=== PATIENT | male | born 1955 | race Caucasian/White ===

== ENCOUNTER 2016-12-04 13:58 | Emergency (ER) | payer OTHER ==
--- NOTE | ~2016-12-04 | EKG ---
PATIENT: BIRDIE PERALES UNIT #: [id number] Ventricular Rate: 92 BPM Atrial Rate: 92 BPM P-R Interval: 188 ms QRS Duration: 94 ms Q-T Interval: 376 ms QTC Calculation(Bezet): 464 ms P [place]: 80 degrees Calculated R [place]: 40 degrees Calculated T [place]: 126 degrees Diagnosis Line: Normal sinus rhythm Diagnosis Line: Biatrial enlargement Diagnosis Line: Nonspecific ST and T wave abnormality Diagnosis Line: Abnormal ECG Diagnosis Line: When compared with ECG of 10-JAN-2016 14:52, Diagnosis Line: Premature ventricular complexes are no longer Diagnosis Line: Present Diagnosis Line: Left posterior fascicular block is no longer Diagnosis Line: Present Diagnosis Line: Nonspecific T wave abnormality now evident in Diagnosis Line: Lateral leads Diagnosis Line: Confirmed by OTIS AUSTIN MD ([id number]) on 12/06/2016 Diagnosis Line: 2:56:54 PM INTERPRETING MD: GEOVANNA GOMEZ
--- NOTE | ~2016-12-04 | CR72 ---
[facility] A Service of [facility] & [facility] [place] [place] RADIOLOGY TEXT RESULTS PATIENT: BIRDIE PERALES LOCATION: [facility] : 53 UNIT #: [id number] AGE: [address]: Aniceto Garcia MD SEX: M ORDER DR: [id number] [facility] [address] [place], [place] [address] [id number] E MR#: [id number] Acc #: [id number] NAME: BIRDIE PERALES. : 1955 SEX: M STUDY DATE/TIME: 12/04/2016 15:35 UNIT: [facility] ROOM: STUDY DESCRIPTION: CR Chest Single View Portable Attending Physician: Aniceto Garcia M.D. Ordering Physician: Aniceto Garcia M.D. Primary Care Physician: Arnaldo Seth M.D. MEDICAL IMAGING REPORT This report is preliminary unless electronic signature is present EXAM Portable chest, 1 view, 12/04/2016. COMPARISON 01/10/2016 CLINICAL HISTORY Short of air today. FINDINGS A single AP portable view of the chest shows both lungs to be clear. The heart is normal in size. The mediastinal contour is normal. No significant bone abnormalities are seen. IMPRESSION Normal portable chest. Dictated by... Kan Vasquez M.D. THIS IS AN ELECTRONICALLY VERIFIED REPORT Kan Vasquez M.D. at 12/13/2016 10:40 AM CARLITOS/genaro TD: 12/05/2016 10:00 JOB #: [id number] MEDICAL IMAGING REPORT Page 1 of 1 COPY
[~2016-12-04 13:58] MED LIST: ALDACTONE25 MG PO; COMBIVENT U/D3 M2 INH; COREG3.125 M1; K-TAB ER20 MEQ PO; LASIX PO; LEVAQUIN750 M1 PO; LISINOPRIL5 MG PO; MULTI VITAMIN1 EACH PO; NO MEDICATIONS; PREDNISONE PO
[2016-12-04 14:34] LABS: BASOPHIL# 0.1 X10e3 (0-0.3); BASOPHIL% 0.7 % (0-2.5); EOSINOPHIL% 0.4 % (0.0-7.0); HEMATOCRIT 54.7 % (38.0-50.0); HEMOGLOBIN 17.7 gm/dL (13.0-16.0); LYMPHOCYTE# 1.3 X10e3 (1.0-3.5); LYMPHOCYTE% 11.6 % (17.0-45.0); MEAN CELL VOLUME 95.3 FL (83-96); MEAN CORPUSCULAR HEMOGLOBIN 30.8 PG (28-34); MEAN CORPUSCULAR HGB CONC 32.3 g/dL (30-36); MONOCYTE# 0.6 X10e3 (0-1.0); MONOCYTE% 5.5 % (3.0-12.0); NEUTROPHIL# 9.4 X10e3 (1.5-7.1); NEUTROPHIL% 81.8 % (40-75); PLATELET COUNT 195 X10e3 (140-420); RED BLOOD COUNT 5.75 X10e (3.90-5.60); RED CELL DISTRIBUTION WIDTH 13.8 % (11.0-15.5); WHITE BLOOD COUNT 11.5 X10e3 (4.0-10.5)
[2016-12-04 14:38] LABS: DIFF IND NO
[2016-12-04 14:56] LABS: ALBUMIN SERUM 4.4 g/dL (3.5-5.0); BILIRUBIN, DIRECT 0.3 mg/dL (0.0-0.2); BILIRUBIN,INDIRECT 1.6 mg/dL (0.0-0.9); BILIRUBIN,TOTAL 1.9 mg/dL (0.2-2.0); BUN/CREATININE RATIO 13.63; CALCIUM SERUM 8.9 mg/dL (8.4-10.2); CREATININE SERUM 1.1 mg/dL (0.6-1.4); GLOM FILT RATE Estimated 71.6 mL/min (>60); POTASSIUM 4.3 mmol/L (3.5-5.1); PROTEIN TOTAL SERUM 7.7 g/dL (6.0-8.3)
[2016-12-04 14:57] LABS: POC - CKMB 2.8 ng/mL (0.0-7.9); POC - TROPONIN <0.05 ng/mL (<=0.05)
[2016-12-04 16:59] LABS: POC - CKMB 2.4 ng/mL (0.0-7.9); POC - TROPONIN <0.05 ng/mL (<=0.05)
== END 2016-12-04 16:44 | disposition home or self-care (01) ==
LOC: CED 13:58
PROVIDERS: Emergency Medicine
DX: R06.02 Shortness of breath (principal); G47.00 Insomnia, unspecified; R53.1 Weakness; J44.9 Chronic obstructive pulmonary disease, unspecified; I10 Essential (primary) hypertension; F17.210 Nicotine dependence, cigarettes, uncomplicated; Z79.899 Other long term (current) drug therapy
CPT/HCPCS: 36415; 71010; 80048; 80076; 82553; 84484; 85025; 93005; 99285